=== PATIENT | female | born 1965 | race Caucasian/White ===

== ENCOUNTER 2016-10-07 18:19 | Observation (INO) ==
[2016-10-07] MEDS ORDERED: Ondansetron 4 MG/2 ML VIAL IV ONE (19:20)
[2016-10-07] MEDS ORDERED: *HR* HYDROmorphone (PF) 1 MG/ML SYRINGE IV ONE ×2 (19:20→21:56)
[2016-10-07] MEDS ORDERED: 0.9 % Sodium Chloride 1,000 ML IV ONE ×2 (19:20→21:56)
--- NOTE | 2016-10-07 19:24 | Emergency Department Note ---
Disposition Clinical Impression: Transaminitis, Hyperbilirubinemia, Epigastric abdominal pain, Intractable abdominal pain Disposition: Admitted As Inpatient Condition: Fair Time of Disposition: 22:35 Abdominal Pain HPI - General Chief Complaint: ED Abdominal Pain Stated Complaint: upper abd pain into back// vomiting Time Seen by Provider: 10/07/16 19:11 Source: patient Mode of arrival: ambulatory Limitations: no limitations Nursing Notes Reviewed: Yes Vital Signs Reviewed: Yes - History of Present Illness HPI Narrative: 42-year-old female with history of cholecystectomy, presents with acute onset epigastric pain, patient also has a history of pancreatitis. No history of drinking, morbid obesity, hypertension, never had upper endoscopy. Patient states that she has been having gas and bloating, took a Gas-X today but did not relieve her symptoms. Currently has 8 out of 10 epigastric pain radiating to her back. Apparently family history her father had an aortic aneurysm, mother with history of CABG, patient with no history of CAD, she denies chest pain, but does have discomfort with deep breaths. Vomiting 6 Pain is crampy and colicky in nature. Worse after eating. Patient has had normal stools and she denies hematuria emesis, hematochezia dysuria hematuria, Pt Subjective Complaint: abdominal pain Onset (ago): hour(s) (12) Consistency: constant Location: epigastric Pain Severity: moderate Pain Scale: 8 Quality: cramping, stabbing, aching Radiation: back Improves with: nothing Worsens with: eating Associated symptoms: Reports: nausea, vomiting. Denies: diarrhea, hematemesis, hematochezia - Related Data Allergies Allergy/AdvReac Type Severity Reaction Status Date / Time codeine Allergy See Verified 10/07/16 19:37 Comments Review of Systems: All systems were reviewed with historian and negative except as per below, or as documented in the HPI. Constitutional: Denies: fever, chills, weight changes CV: Denies: chest pain, palpitations Resp: Denies: cough, dyspnea, wheezes, hemoptysis GI: See history of present illness, positive for abdominal pain, nausea, vomiting denies hematochezia or melena Neuro: Denies: MARKS, weakness, sensory changes, gait difficulty Psych: Denies: anxiety, depression All systems ED: reviewed and negative except as stated. Abdominal Pain PMH - Past Medical History Medical history: Reports: hypertension Female Surgical History: Reports: , cholecystectomy Psychiatric history: Reports: depression - Social History Smoking status: Never smoker Alcohol use: Reports: rarely Drug use: Reports: none Physical Exam Constitutional: Morbidly obese female appears in mild discomfort, vital signs reviewed and wnl Neck: normal inspection, neck is supple, trachea midline Resp: normal chest inspection, CTA bilaterally, no resp distress CV: RRR, no m/g/r GI: Moderate to severe epigastric discomfort on palpation. Abdomen is soft and morbidly obese bowel sounds present 4 Back: normal inspection, no tenderness to palpation Neuro: A&O3, no gross motor or sensory deficits bilaterally MSK: normal inspection, bilateral UE and LE with normal ROM Skin: No rashes, skin warm, dry, intact - General Limitations: no limitations General appearance: alert Course Course Narrative: 51-year-old female with abdominal pain and epigastric moderate to severe, appears very uncomfortable get IV fluids and analgesics antiemetics and by mouth his lab work with lipase, hepatic panel, troponin EKG chest x-ray will get CT scan of the belly with contrast - Reevaluation(s) Reevaluation #1: Intractable abdominal pain, transaminitis and hyperbilirubinemia will admit patient to medicine service with GI evaluation. Ernesto accepting, Dr. Jimenez consulted - Consultations Consultation #1: I did speak with Dr. Jimenez he will evaluate patient to morning, and put orders and he states possible ERCP Time: 22:32 Vital Signs Temperature 98.5 F 10/07/16 18:22 Pulse Rate 66 10/07/16 18:22 Respiratory Rate 18 10/07/16 18:22 Blood Pressure 179/126 10/07/16 18:22 O2 Sat by Pulse Oximetry 96 10/07/16 18:22 Temperature 98.5 F 10/07/16 18:22 Pulse Rate 69 10/07/16 21:34 Respiratory Rate 20 10/07/16 21:34 Blood Pressure 177/110 10/07/16 21:34 O2 Sat by Pulse Oximetry 97 10/07/16 21:34 Oxygen Delivery Oxygen Delivery Room Air Abdominal Pain - Differential Diagnosis Differential Diagnosis: Likely: abdominal pain non-specific, acute appendicitis , diverticulitis, diverticulosis - Medical Records Medical records reviewed: Yes I reviewed the patient's medical records. - Lab Data Lab results reviewed: Yes I reviewed the patient's lab results. Result diagrams: 10/07/16 19:40 10/07/16 19:40 Lab Results 10/07/16 10/07/16 10/07/16 Range/Units 19:40 19:40 19:40 WBC 7.3 (4.3-11.1) K/mcL RBC 5.01 H (3.82-4.97) M/mcL Hgb 13.3 (11.5-15.4) g/dL Hct 41.4 (35.3-44.9) % MCV 82.6 L (83.0-100.0) fL MCH 26.5 L (28.0-33.3) pg MCHC 32.1 (31.6-35.5) g/dL RDW 13.5 (11.5-14.5) % Plt Count 235 (140-400) K/mcL MPV 9.9 (9.4-12.4) fL Immature Gran % 0.4 (0-4) % Seg Neutrophils % 81.9 % Lymphocytes % 12.1 % Monocytes % 5.2 % Eosinophils % 0.1 % Basophils % 0.3 % Neutrophils # 6.0 (1.6-8.9) K/mcL Lymphocytes # 0.9 (0.6-4.6) K/mcL Monocytes # 0.4 (0.0-1.3) K/mcL Eosinophils # 0.0 (0.0-0.6) K/mcL Basophils # 0.0 (0.0-0.2) K/mcL Immature Plt Fraction 3.3 (1.1-6.1) % Sodium 139 (136-145) mEq/L Potassium 3.8 (3.5-4.5) mEq/L Chloride 102 (98-109) mEq/L Carbon Dioxide 27 (19-29) mEq/L BUN 13 (7-20) mg/dL Creatinine 0.87 (0.57-1.11) mg/dL Est GFR ( Amer) > 60 (> 60) Est GFR (Non-Af Amer) > 60 (> 60) BUN/Creatinine Ratio 15 (6-26) Glucose 143 H (70-99) mg/dL Calculated Osmolality 291 (280-300) Calcium 9.1 (8.6-10.8) mg/dL Total Bilirubin 1.8 H (0.2-1.2) mg/dL Direct Bilirubin 1.2 H (0.0-0.5) mg/dL Indirect Bilirubin 0.6 (0.0-1.2) mg/dL AST 489 H (5-34) Units/L ALT 417 H (0-55) Units/L Alkaline Phosphatase 106 (38-126) Units/L Troponin I 0.00 (0-0.03) ng/mL Serum Total Protein 7.2 (6.0-8.3) g/dL Albumin 3.5 (3.5-5.0) g/dL Globulin 3.7 H (2.4-3.5) g/dL Albumin/Globulin Ratio 0.9 L (1.1-2.2) Lipase 19 (8-78) Units/L Urine Color (Yellow) Urine Clarity (Clear) Urine pH (5.0-8.0) pH Units Ur Specific [place] (1.010-1.025) Urine Protein (Neg-Trace) mg/dL Urine Glucose (UA) (Normal) mg/dL Urine Ketones (Negative) mg/dL Urine Blood (Negative) Urine Nitrite (Negative) Urine Bilirubin (Negative) Urine Urobilinogen (Normal) mg/dL Ur Leukocyte Esterase (Negative) Urine Microscopic RBC (0-3) per hpf Ur Squamous Epith Cells (None-Few) per lpf Amorphous Sediment (Few) Urine Bacteria (None-Few) per hpf Hyaline Casts (None-Few) per lpf Ur Culture Indicated? (NO) 10/07/16 Range/Units 21:35 WBC (4.3-11.1) K/mcL RBC (3.82-4.97) M/mcL Hgb (11.5-15.4) g/dL Hct (35.3-44.9) % MCV (83.0-100.0) fL MCH (28.0-33.3) pg MCHC (31.6-35.5) g/dL RDW (11.5-14.5) % Plt Count (140-400) K/mcL MPV (9.4-12.4) fL Immature Gran % (0-4) % Seg Neutrophils % % Lymphocytes % % Monocytes % % Eosinophils % % Basophils % % Neutrophils # (1.6-8.9) K/mcL Lymphocytes # (0.6-4.6) K/mcL Monocytes # (0.0-1.3) K/mcL Eosinophils # (0.0-0.6) K/mcL Basophils # (0.0-0.2) K/mcL Immature Plt Fraction (1.1-6.1) % Sodium (136-145) mEq/L Potassium (3.5-4.5) mEq/L Chloride (98-109) mEq/L Carbon Dioxide (19-29) mEq/L BUN (7-20) mg/dL Creatinine (0.57-1.11) mg/dL Est GFR ( Amer) (> 60) Est GFR (Non-Af Amer) (> 60) BUN/Creatinine Ratio (6-26) Glucose (70-99) mg/dL Calculated Osmolality (280-300) Calcium (8.6-10.8) mg/dL Total Bilirubin (0.2-1.2) mg/dL Direct Bilirubin (0.0-0.5) mg/dL Indirect Bilirubin (0.0-1.2) mg/dL AST (5-34) Units/L ALT (0-55) Units/L Alkaline Phosphatase (38-126) Units/L Troponin I (0-0.03) ng/mL Serum Total Protein (6.0-8.3) g/dL Albumin (3.5-5.0) g/dL Globulin (2.4-3.5) g/dL Albumin/Globulin Ratio (1.1-2.2) Lipase (8-78) Units/L Urine Color Yellow (Yellow) Urine Clarity Slightly Hazy (Clear) Urine pH 7.5 (5.0-8.0) pH Units Ur Specific [place] > 1.030 H (1.010-1.025) Urine Protein Negative (Neg-Trace) mg/dL Urine Glucose (UA) Normal (Normal) mg/dL Urine Ketones Negative (Negative) mg/dL Urine Blood Negative (Negative) Urine Nitrite Negative (Negative) Urine Bilirubin Negative (Negative) Urine Urobilinogen Normal (Normal) mg/dL Ur Leukocyte Esterase Negative (Negative) Urine Microscopic RBC 0-3 (0-3) per hpf Ur Squamous Epith Cells Many H (None-Few) per lpf Amorphous Sediment Moderate H (Few) Urine Bacteria Moderate H (None-Few) per hpf Hyaline Casts None Seen (None-Few) per lpf Ur Culture Indicated? NO (NO) - Radiology Data Radiology results reviewed: Yes I reviewed the patient's radiology results. Abdomen/Pelvis CTA 10/07/16 19:21 IMPRESSION: 1. No acute intra-abdominal findings identified. 2. Unremarkable appearance of the aorta. No evidence for dissection or aneurysm. 3. Diverticulosis without evidence for diverticulitis. D/ / Chas Trujillo MD / Chas Trujillo MD Interpreting Provider: Chas Trujillo MD Chest X-Ray 10/07/16 19:21 IMPRESSION: Normal chest. D/ / 10/07/2016 19:44:53 Chalry Granados MD / joe Interpreting Provider: Charly Granados MD - EKG Data EKG attestation: Yes I reviewed and interpreted this EKG. EKG shows normal: sinus rhythm (63 bpm WV 196 QRS 96 QTc 407 Q wave) Rate: normal Rhythm: NSR Interpretation: no acute changes, unchanged when compared to prior tracing (date ) - Core Measures AMI Core Measures Followed: No Measure Exclusions: not indicated Attestation Statement - Attestation Attestation: I, Sebastián Castillo MD, personally performed a history and physical exam of the patient and discussed their management with the resident. I reviewed the resident's note and agree with the documented findings, medical decision making , and plan of care. 51-year-old female presents to the emergency department with a complaint of epigastric abdominal pain which started this morning. It was rapid onset and is fairly severe in intensity. Patient has had her gallbladder out about 20 years ago. On examination patient is a well-developed obese female in no acute distress but does appear to be in moderate discomfort. She is alert and oriented 3. There is no cyanosis or diaphoresis. Sounds are clear and equal bilaterally. Heart regular rate and rhythm. Abdomen is soft with normal bowel sounds. It is moderate midepigastric tenderness with no guarding or rebound tenderness. No CVA tenderness. Labs reviewed. Elevated total bilirubin and hepatic enzymes noted. Dr. Wright discussed with the chemical dependency counselor, Dr. Jimenez, and he will follow-up with the patient in the morning in the hospital. The hospitalist, Dr. Orozco, was consulted and accepted admission of the patient.
[2016-10-07 19:56] LABS: Basophils % 0.3 %; Eosinophils % 0.1 %; Hematocrit 41.4 % (35.3-44.9); Hemoglobin 13.3 g/dL (11.5-15.4); Immature Granulocytes % 0.4 % (0-4); Immature Platelets 3.3 % (1.1-6.1); Lymphocytes # 0.9 K/mcL (0.6-4.6); Lymphocytes % 12.1 %; Mean Corpuscular HGB Conc 32.1 g/dL (31.6-35.5); Mean Corpuscular Hemoglobin 26.5 pg (28.0-33.3); Mean Corpuscular Volume 82.6 fL (83.0-100.0); Mean Platelet Volume 9.9 fL (9.4-12.4); Monocytes # 0.4 K/mcL (0.0-1.3); Monocytes % 5.2 %; Platelet Count 235 K/mcL (140-400); Red Blood Count 5.01 M/mcL (3.82-4.97); Red Cell Distribution Width 13.5 % (11.5-14.5); Segmented Neutrophils % 81.9 %
[2016-10-07 20:13] LABS: Alanine Aminotransferase 417 Units/L (0-55); Albumin 3.5 g/dL (3.5-5.0); Albumin/Globulin Ratio 0.9 (1.1-2.2); Alkaline Phosphatase 106 Units/L (38-126); Aspartate Amino Transferase 489 Units/L (5-34); BUN/Creatinine Ratio 15 (6-26); Bilirubin,Direct 1.2 mg/dL (0.0-0.5); Bilirubin,Indirect 0.6 mg/dL (0.0-1.2); Bilirubin,Total 1.8 mg/dL (0.2-1.2); Blood Urea Nitrogen 13 mg/dL (7-20); Calcium 9.1 mg/dL (8.6-10.8); Carbon Dioxide 27 mEq/L (19-29); Chloride 102 mEq/L (98-109); Globulin 3.7 g/dL (2.4-3.5); Glucose 143 mg/dL (70-99); Lipase 19 Units/L (8-78); Osmolality,Calculated 291 (280-300); Potassium 3.8 mEq/L (3.5-4.5); Sodium 139 mEq/L (136-145); Total Protein 7.2 g/dL (6.0-8.3); eGFR For African Americans > 60 (> 60); eGFR For Non-African Americans > 60 (> 60)
[2016-10-07] MEDS ORDERED: GI Cocktail 40 ML EACH PO ONE (21:32)
[2016-10-07] MEDS ORDERED: Dicyclomine 20 MG/2 ML AMPUL IM ONE (21:32)
[2016-10-07] MEDS ORDERED: Metoclopramide 10 MG/2 ML VIAL IVP ONE (21:39)
[2016-10-07 21:46] LABS: Bilirubin,Urine Negative (Negative); Blood,Urine Negative (Negative); Color,Urine Yellow (Yellow); Glucose,Urine (UA) Normal (Normal); Ketones,Urine Negative (Negative); Leukocyte Esterase,Urine Negative (Negative); Nitrite,Urine Negative (Negative); PH,Urine 7.5 pH Units (5.0-8.0); Protein,Urine Negative (Neg-Trace); Specific Gravity,Urine > 1.030 (1.010-1.025); Urobilinogen,Urine Normal (Normal)
[2016-10-07 21:48] LABS: Bacteria,Urine Moderate per hpf (None-Few); Hyaline Casts,Urine None Seen per lpf (None-Few); RBC,Urine 0-3 per hpf (0-3); Squamous Epithelial Cell,Urine Many per lpf (None-Few)
[2016-10-07 21:53] LABS: Clarity,Urine Slightly Hazy (Clear)
[2016-10-07 22:09] LABS: Amorphous Sediment,Urine Moderate (Few)
[2016-10-07] MEDS ORDERED: Pantoprazole 40 MG VIAL IVP ONE (22:45)
[2016-10-07] MEDS ORDERED: *HR* HYDROmorphone (PF) 1 MG/ML SYRINGE IVP PRN (22:45)
[2016-10-07] MEDS ORDERED: Naloxone 0.4 MG/ML INJ IVP PRN (22:45)
[2016-10-07] MEDS ORDERED: Ondansetron 4 MG/2 ML VIAL IVP ONE (22:45)
[2016-10-07] MEDS ORDERED: Ketorolac 30 MG/ML VIAL IVP ONE (22:45)
[2016-10-07] MEDS ORDERED: *HR* OxyCODONE Immed Rel 5 MG TABLET PO PRN (22:45)
[2016-10-07] MEDS ORDERED: *HR* Promethazine 25 MG/ML VIAL IVP PRN (22:45)
[2016-10-07] MEDS ORDERED: Ketorolac 30 MG/ML VIAL IVP PRN (22:45)
--- NOTE | 2016-10-07 23:04 | Internal Med History&Physical ---
Date of Encounter: 10/07/16 Time of Encounter: 22:00 Assessment and Plan (1) Nausea & vomiting Current visit: Yes Status: Acute . Qualifiers: Vomiting type: cyclical vomiting Vomiting Intractability: intractable Qualified Code(s): G43.A1 - Cyclical vomiting, intractable (2) Cholestasis, intrahepatic Current visit: Yes Status: Acute . (3) Morbid obesity with BMI of 40.0-44.9, adult Current visit: Yes Status: Chronic . (4) Accelerated essential hypertension Current visit: Yes Status: Acute . (5) Hyperglycemia, unspecified Current visit: Yes Status: Acute . (6) Anemia Current visit: Yes Status: Acute . Qualifiers: Anemia type: unspecified type Qualified Code(s): D64.9 - Anemia, unspecified (7) YANET (obstructive sleep apnea) Current visit: Yes Status: Chronic . (8) Epigastric abdominal pain Current visit: Yes Status: Acute . (9) Intractable abdominal pain Current visit: Yes Status: Acute . (10) Transaminitis Current visit: Yes Status: Acute . (11) Diverticulosis of colon Current visit: Yes Status: Chronic . Qualifiers: Diverticulosis bleeding: diverticulosis without bleeding Qualified Code(s) : K57.30 - Diverticulosis of large intestine without perforation or abscess without bleeding (12) Umbilical hernia Current visit: Yes Status: Chronic . Qualifiers: Obstruction and gangrene presence: without obstruction or gangrene Qualified Code(s): K42.9 - Umbilical hernia without obstruction or gangrene (13) Supraumbilical hernia Current visit: Yes Status: Acute . 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 Internal Medicine - H&P: HPI Chief complaint: Abdominal pain Admitted From: Emergency Dept Plans for Post Hospital Care: Home History of present illness: Ms. Collado is a 51 year old female history significant for hypertension, obstructive of sleep apnea (not currently on CPAP), diverticulosis coli, morbid obesity, nonsmoker. The patient was visited and interviewed and examined. The patient was admitted to [facility] via the emergency department which she presented with report of intractable abdominal pain nausea and vomiting. Patient reported the acute onset of primarily mid to epigastric pain with radiation through to the back on the day of ED presentation. He had a sensation of increasing gaseousness and bloating earlier in the day and took Gas -X and attempt to relieve her discomfort. This was unsuccessful. Her pain was rated at 8-10/10 severity. This was not associated by any symptoms of diarrhea or constipation. There was no report upper or lower gastrointestinal bleeding, although nausea and vomiting was prominent and the patient vomited at least 6 times prior to her ER presentation. When present nothing seems to improve symptoms. The symptoms seemed better less severe with an empty stomach. Denied hematemesis hemoptysis epistaxis.. Denied melena hematochezia. Abdominal pain has at times felt crampy and colicky. Although specific food triggers have not been identified, eating anything solid aggravates symptoms. She reported a normal bowel movement the day of presentation. Denied any evidence for hematuria dysuria or flank pain. Her pain she acknowledges this as be mostly radiating up from the epigastrium, with a sense of bloating and accompanied by some discomfort at deep inspirations. Although she has had some mild lower chest discomfort she relates this primarily as being a part of her epigastric complaint denies any prior history of known or diagnosed heart disease. Family history however is significant with father treated for an aortic aneurysm and her mother having received a coronary artery bypass grafting. Again she denied any personal history for coronary artery disease although heart disease is prominent in her family and she denies current symptoms. She denies any specific food triggers. She reports that her prior history of pancreatitis was believed to have been self-limited with no sequela. Her current symptoms of pain in the epigastrium radiating through to her back with some association with oral intake is reminiscent of her previous diagnosis of pancreatitis. Findings in the ED: Temperature 98.5 pulse 66-69 respiration 16-18 BP 176-179/ 107-126. O2 saturation 96-98% room air. WBC 7.3 hemoglobin 15.3 platelets 235, 000. MCV 82.6 MCH 26.5. RBC 5.01. Differential normal. Metabolic panel normal. BUN 13 creatinine 0.87. Glucose 143 osmolality 291. Hepatic function bilirubin total 1.8 direct 1.2. AST 489 ALT 417. Albumin 2.5 total 7.2. Lipase 19. Troponin 0.00. CT angiogram abdomen and pelvis demonstrated no acute intra-abdominal findings. Unremarkable appearance of the aorta. No evidence for dissection or aneurysm. Diverticulosis without evidence of diverticulitis. Lung bases demonstrated mild bibasilar atelectasis. Partially calcified nodule left lung base. Several calcified nodules left hilum. Incidental notation of a sensory right renal artery. Liver spleen pancreas kidneys adrenals appeared intact. Gallbladder surgically absent. Mild intrahepatic and extrahepatic biliary dilatation. No free fluid or free air in the identified area. Bowel grossly unremarkable. Nose showed no acute abnormalities. Soft tissues demonstrated small fat filled umbilical hernia small supraumbilical fat filled ventral hernia. Portable chest x-ray demonstrated no acute or active cardiopulmonary process. EKG normal sinus rhythm. Rate 63. No acute ischemic changes. Preliminary impression suggests acute abdominal pain associated nausea and vomiting really of epigastric mid epigastric area. Rule out gastritis/ duodenitis/PUD. Rule out recurrent pancreatitis. No evidence for SMA syndrome versus celiac artery obstruction or vascular lesion. Findings are complicated by apparent cholestasis the patient status post prior cholecystectomy. Transaminitis + direct hyperbilirubinemia noted. Rule out intrahepatic process with obstruction. Rule out extrahepatic process or obstructing lesion/mass. Mild erythrocytosis with micro-acidic hypochromic red blood cell indices may suggest the presence of a hemoglobinopathy. This will need to be further assessed. She has Not Undergone Any Upper or Lower Endoscopy Interventions. He Is Not Currently on Any Long-Standing Hormone Replacement/OCP Therapy. Clinical examination is also significant for accelerated hypertension due to severe. This may be prone toward the inducing her somatic complaints of chronic recurring headaches and migraine headaches. This has not however been clearly defined as a relationship. Investigation is warranted. Patient's presenting concerns, clinical findings and history she is at low risk for further acute clinical decline and morbidity. Workup and treatment will proceed comprehensively. Cumulative laboratory and radiographic data base was reviewed, considered and discussed. Pertinent ancillary medical records including ECW and PCI documentation was reviewed and considered. Given the patient's presenting concerns, past medical history, clinical findings and symptoms, she is admitted at this time will undergo further evaluation and disposition. Orders were written as per the computerized physician linseed oil order filler system.......................................................................... .................... Consultative opinions will be sought as clinical circumstances justify. Consultative opinion has been requested of gastroenterology. Pain management needs will be addressed. Laboratory and radiographic data base will be updated as appropriate. Studies include: PT,INR,APTT,Ddimer,LDH, reticulocyte count, VBG, UA, HCG preg test, cardiac injury panel, BNP, metabolic and hematologic panel, magnesium. phosphorus, ionized calcium, thyroid panel, lipid profile, A1c, C-peptide, CRP, sed rate, amylase, lipase, lactic acid, Hgb electrophoresis, serologies, etc. Precautions: Aspiration, fall, delirium protocol/surveillance initiated. Telemetry with continuous hemodynamic monitoring and pulse oximetry initiated. Orthostatic vital signs. Empiric antibiotic coverage: pending diagnostics/culture data. Special studies: CT/CTA abd-pelvis, chest x-ray, telemetry, EKG, MRCP. Pulmonary toilet: Incentive spirometry. Aerosol bronchodilator, mucolytic, antitussive. Supplemental oxygen. Corticosteroid therapyPRN. CPAP/BiPAP supplemental oxygen delivery. Aerosol Mucomyst therapyPRN. Fluid and electrolyte repletion efforts will proceed. Careful attention to fluid balance and renal recovery will be emphasized. Avoidance of nephrotoxic exposure and adverse drug drug interaction in the setting of impaired renal function will be monitored closely. Acute coronary syndrome protocol/surveillance initiated. Bowel rest. Ice chips/water with oral medications. Nothing By mouth advanced to clear liquids to advance as tolerated at the discretion of consulting staff. Antiemetic, prokinetic, probiotic therapy initiated. Intravenous PPI and PO sucralfate. Fluid rehydration therapy. DVT and PUD prophylaxis initiated: PPI therapy, intermittent pneumatic cuffs/ TEDs. Subcutaneous heparin/Lovenox. Early ambulation will be encouraged. Immunization updates recommended. Influenza and pneumococcal vaccinations as part of ongoing preventative healthcare recommendations strongly recommended. Smoking cessation counseling briefly addressed. Patient is a nonsmoker. Advanced care directive discussion briefly addressed. Patient does not declare any healthcare restrictions at this time. Cardiovascular risk appraisal and cardiovascular risk reduction efforts will be emphasized. Physical and occupational therapy may be consulted to evaluate patient's functional capacity and progress mobility as circumstances justify. Nutrition/dietary education counseling may be considered as circumstances justify. Outpatient medication schedules will be reviewed, confirmed and facilitated as appropriate. Reconciliation of home treatments including adjustments, substitutions and reintroduction into the treatment regimen will address necessary maintenance therapies for chronic pre-existing medical conditions. Plan of care has been reviewed and discussed in detail with the patient. Questions addressed. Hospital course anddicyated by clinical findings, treatment response and potential consultative interventions. Patient is at risk for further acute clinical declinea and morbidity due to her present chief complaints, findings and comorbid conditions. Condition is serious. Prognosis is guarded. CODE STATUS is full. Past Med Surg Social Fam HX - Past Medical History Source: old records reviewed Medical history: arthritis, hypertension, other (Diverticulosis of the colon. Obstructive sleep apnea, nocturnal CPAP dependent.) Psychiatric history: anxiety, depression, other - Past Surgical History Surgical History: , cholecystectomy, other - Social History Smoking Status: Never smoker Smokeless Tobacco Status: No Alcohol use: rarely Drug use: none Occupational status: unemployed Current living situation: With Family Activity Level: Independent ambulation, Mostly sedentary Recent Out of Country Travel Within the Last 8 Weeks: No Exposure or Possible Exposure to Illness During Travel: No - Family History Mother Living Status: Still Living Hx Family Cardiac Disorders: Yes Father Living Status: Cause of : Aortic aneurysm Hx Family Cardiac Disorders: Yes Internal Medicine - H&P: Meds Escitalopram [Lexapro] 20 mg PO DAILY 10/07/16 [History] Furosemide [Lasix] 20 mg PO DAILY 10/07/16 [History] Lisinopril [Zestril] 5 mg PO BID 10/07/16 [History] Allergies codeine Allergy (Verified 10/07/16 19:37) See Comments Pt states throat swells (moderately) and that hives and itching are severe. All Systems PM: A 10-system review of systems was performed and is negative for pertinent findings except as documented above in the HPI. - Constitutional Constitutional: as per HPI, malaise, no chills, no fever(s), no night sweats - EENT Eyes: as per HPI, no change in vision, no discharge, no pain, no photophobia Ears: as per HPI, no ear discharge, no ear pain, no tinnitus Nose, mouth and throat: as per HPI, no dysphagia, no nasal discharge, no neck pain, no sore throat - Cardiovascular Cardiovascular ROS IM: as per HPI, no chest pain, no diaphoresis, no dyspnea, no lightheadedness, no palpitations, no syncope - Respiratory Respiratory: as per HPI, no cough, no dyspnea, no wheezing, no excessive phlegm production - Gastrointestinal Gastrointestinal: as per HPI, abdominal pain, bloating, cramping, other, no change in bowel habits, no change in stool character, no coffee ground emesis, no constipation, no diarrhea, no hematemesis, no hematochezia, no melena, no nausea, no vomiting - Genitourinary Genitourinary: as per HPI, no change in urinary stream, no dysuria, no flank pain, no hematuria - Musculoskeletal Musculoskeletal ROS IM: as per HPI, no numbness, no tingling - Integumentary Integumentary IM: as per HPI, no rash, no unusual bruising - Neurological Neurological ROS: as per HPI, no confusion, no convulsions, no focal weakness, no numbness, no tingling, no tremor(s) - Psychiatric Psychiatric: as per HPI - Endocrine Endocrine IM: as per HPI - Hematologic/Lymphatic Hematologic/Lymphatic: as per HPI, no easy bruising - Allergic/Immunologic Allergic/Immunologic: as per HPI - Constitutional Vitals: Temp Pulse Resp BP Pulse Ox 98.2 F 83 16 197/106 96 10/07/16 22:55 10/07/16 22:55 10/07/16 22:55 10/07/16 22:55 10/07/16 22:55 General appearance: Present: cooperative, mild distress, A&O X 3, morbidly obese , pleasant, answers questions appropriately - Head Head exam: Present: atraumatic, normal inspection, normocephalic - Eye Eye exam: Present: EOMI, PERRL, conjuntiva pink, sclera anicteric Pupils: Present: normal accommodation, PERRL - ENT ENT exam: Present: mucous membranes moist, normal external ear exam, normal oropharynx - Neck Neck exam general surgery: Present: full ROM, supple, trachea midline. Absent: lymphadenopathy, tenderness, nuchal rigidity - Respiratory Respiratory exam: Present: decreased breath sounds, CTAB. Absent: accessory muscle use, rales, rhonchi, wheezes - Cardiovascular Cardiovascular exam: Present: distant heart sounds, RRR, +S1, +S2. Absent: diastolic murmur, gallop, rubs, systolic murmur - GI/Abdominal GI/Abdominal exam: Present: diminished bowel sounds, distended, guarding, hypoactive bowel sounds, soft, tenderness, no peritoneal signs. Absent: mass, rebound - Extremities Exam Extremities exam: Present: full ROM, warm, radial pulses palpable and symetrical. Absent: calf tenderness, cyanotic, pedal edema - Neurological Exam Neurological exam: Present: alert, CN II-XII intact, oriented X3, no focal deficits. Absent: pronater drift, facial droop, speech deficit - Psychiatric Psychiatric exam: Present: normal affect, normal mood - Skin Skin exam: Present: dry, intact, warm. Absent: petechiae, rash, urticaria, vesicles Internal Med - H&P Results - Labs CBC & Chem 7: 10/07/16 19:40 10/07/16 19:40 Labs: Vital Signs Temp Pulse Resp BP Pulse Ox 10/07/16 22:55 98.2 F 83 16 197/106 96 10/07/16 22:41 18 167/89 10/07/16 21:34 69 20 177/110 97 10/07/16 20:54 69 16 176/107 98 10/07/16 20:15 63 14 185/115 10/07/16 18:22 98.5 F 66 18 179/126 96 Intake and Output 10/07/16 10/07/16 10/07/16 07:59 15:59 23:59 Intake Total 1999 Output Total 0 / 0 Balance 1999 Intake: IV Fluids 1999 0.9 % Sodium Chloride , 1999 000 ML @ 3750 mls/hr IV BOLUS ONE Rx#:[id number] Oral 0 / 0 Output: Urine 0 / 0 Other: Stool Characteristics Normal for Patient Weight 127.091 kg Patient Weight 10/07/16 23:59 Weight 127.091 kg Short CBC 10/07/16 Range/Units 19:40 WBC 7.3 (4.3-11.1) K/mcL Hgb 13.3 (11.5-15.4) g/dL Hct 41.4 (35.3-44.9) % Plt Count 235 (140-400) K/mcL Neutrophils # 6.0 (1.6-8.9) K/mcL BMP 10/07/16 Range/Units 19:40 Sodium 139 (136-145) mEq/L Potassium 3.8 (3.5-4.5) mEq/L Chloride 102 (98-109) mEq/L Carbon Dioxide 27 (19-29) mEq/L BUN 13 (7-20) mg/dL Creatinine 0.87 (0.57-1.11) mg/dL Glucose 143 H (70-99) mg/dL Calcium 9.1 (8.6-10.8) mg/dL Cardiac Enzymes 10/07/16 Range/Units 19:40 Troponin I 0.00 (0-0.03) ng/mL Liver Function 10/07/16 Range/Units 19:40 Total Bilirubin 1.8 H (0.2-1.2) mg/dL Direct Bilirubin 1.2 H (0.0-0.5) mg/dL AST 489 H (5-34) Units/L ALT 417 H (0-55) Units/L Alkaline Phosphatase 106 (38-126) Units/L Albumin 3.5 (3.5-5.0) g/dL Urine 10/07/16 Range/Units 21:35 Urine Color Yellow (Yellow) Urine Clarity Slightly Hazy (Clear) Urine pH 7.5 (5.0-8.0) pH Units Ur Specific [place] > 1.030 H (1.010-1.025) Urine Protein Negative (Neg-Trace) mg/dL Urine Glucose (UA) Normal (Normal) mg/dL Allergies Allergy/AdvReac Type Severity Reaction Status Date / Time codeine Allergy See Verified 10/07/16 19:37 Comments - Impressions Abnormal lab results RBC 5.01 M/mcL (3.82-4.97) H 10/07/16 19:40 MCV 82.6 fL (83.0-100.0) L 10/07/16 19:40 MCH 26.5 pg (28.0-33.3) L 10/07/16 19:40 Glucose 143 mg/dL (70-99) H 10/07/16 19:40 Total Bilirubin 1.8 mg/dL (0.2-1.2) H 10/07/16 19:40 Direct Bilirubin 1.2 mg/dL (0.0-0.5) H 10/07/16 19:40 AST 489 Units/L (5-34) H 10/07/16 19:40 ALT 417 Units/L (0-55) H 10/07/16 19:40 Globulin 3.7 g/dL (2.4-3.5) H 10/07/16 19:40 Albumin/Globulin Ratio 0.9 (1.1-2.2) L 10/07/16 19:40 Ur Specific [place] > 1.030 (1.010-1.025) H 10/07/16 21:35 Ur Squamous Epith Cells Many per lpf (None-Few) H 10/07/16 21:35 Amorphous Sediment Moderate (Few) H 10/07/16 21:35 Urine Bacteria Moderate per hpf (None-Few) H 10/07/16 21:35 Laboratory Results WBC 7.3 K/mcL (4.3-11.1) 10/07/16 19:40 RBC 5.01 M/mcL (3.82-4.97) H 10/07/16 19:40 Hgb 13.3 g/dL (11.5-15.4) 10/07/16 19:40 Hct 41.4 % (35.3-44.9) 10/07/16 19:40 MCV 82.6 fL (83.0-100.0) L 10/07/16 19:40 MCH 26.5 pg (28.0-33.3) L 10/07/16 19:40 MCHC 32.1 g/dL (31.6-35.5) 10/07/16 19:40 RDW 13.5 % (11.5-14.5) 10/07/16 19:40 Plt Count 235 K/mcL (140-400) 10/07/16 19:40 MPV 9.9 fL (9.4-12.4) 10/07/16 19:40 Immature Gran % 0.4 % (0-4) 10/07/16 19:40 Seg Neutrophils % 81.9 % 10/07/16 19:40 Lymphocytes % 12.1 % 10/07/16 19:40 Monocytes % 5.2 % 10/07/16 19:40 Eosinophils % 0.1 % 10/07/16 19:40 Basophils % 0.3 % 10/07/16 19:40 Neutrophils # 6.0 K/mcL (1.6-8.9) 10/07/16 19:40 Lymphocytes # 0.9 K/mcL (0.6-4.6) 10/07/16 19:40 Monocytes # 0.4 K/mcL (0.0-1.3) 10/07/16 19:40 Eosinophils # 0.0 K/mcL (0.0-0.6) 10/07/16 19:40 Basophils # 0.0 K/mcL (0.0-0.2) 10/07/16 19:40 Immature Plt Fraction 3.3 % (1.1-6.1) 10/07/16 19:40 Sodium 139 mEq/L (136-145) 10/07/16 19:40 Potassium 3.8 mEq/L (3.5-4.5) 10/07/16 19:40 Chloride 102 mEq/L (98-109) 10/07/16 19:40 Carbon Dioxide 27 mEq/L (19-29) 10/07/16 19:40 BUN 13 mg/dL (7-20) 10/07/16 19:40 Creatinine 0.87 mg/dL (0.57-1.11) 10/07/16 19:40 Est GFR ( Amer) > 60 (> 60) 10/07/16 19:40 Est GFR (Non-Af Amer) > 60 (> 60) 10/07/16 19:40 BUN/Creatinine Ratio 15 (6-26) 10/07/16 19:40 Glucose 143 mg/dL (70-99) H 10/07/16 19:40 Calculated Osmolality 291 (280-300) 10/07/16 19:40 Calcium 9.1 mg/dL (8.6-10.8) 10/07/16 19:40 Total Bilirubin 1.8 mg/dL (0.2-1.2) H 10/07/16 19:40 Direct Bilirubin 1.2 mg/dL (0.0-0.5) H 10/07/16 19:40 Indirect Bilirubin 0.6 mg/dL (0.0-1.2) 10/07/16 19:40 AST 489 Units/L (5-34) H 10/07/16 19:40 ALT 417 Units/L (0-55) H 10/07/16 19:40 Alkaline Phosphatase 106 Units/L (38-126) 10/07/16 19:40 Troponin I 0.00 ng/mL (0-0.03) 10/07/16 19:40 Serum Total Protein 7.2 g/dL (6.0-8.3) 10/07/16 19:40 Albumin 3.5 g/dL (3.5-5.0) 10/07/16 19:40 Globulin 3.7 g/dL (2.4-3.5) H 10/07/16 19:40 Albumin/Globulin Ratio 0.9 (1.1-2.2) L 10/07/16 19:40 Lipase 19 Units/L (8-78) 10/07/16 19:40 Urine Color Yellow (Yellow) 10/07/16 21:35 Urine Clarity Slightly Hazy (Clear) 10/07/16 21:35 Urine pH 7.5 pH Units (5.0-8.0) 10/07/16 21:35 Ur Specific [place] > 1.030 (1.010-1.025) H 10/07/16 21:35 Urine Protein Negative mg/dL (Neg-Trace) 10/07/16 21:35 Urine Glucose (UA) Normal mg/dL (Normal) 10/07/16 21:35 Urine Ketones Negative mg/dL (Negative) 10/07/16 21:35 Urine Blood Negative (Negative) 10/07/16 21:35 Urine Nitrite Negative (Negative) 10/07/16 21:35 Urine Bilirubin Negative (Negative) 10/07/16 21:35 Urine Urobilinogen Normal mg/dL (Normal) 10/07/16 21:35 Ur Leukocyte Esterase Negative (Negative) 10/07/16 21:35 Urine Microscopic RBC 0-3 per hpf (0-3) 10/07/16 21:35 Ur Squamous Epith Cells Many per lpf (None-Few) H 10/07/16 21:35 Amorphous Sediment Moderate (Few) H 10/07/16 21:35 Urine Bacteria Moderate per hpf (None-Few) H 10/07/16 21:35 Hyaline Casts None Seen per lpf (None-Few) 10/07/16 21:35 Ur Culture Indicated? NO (NO) 10/07/16 21:35 Impressions Abdomen/Pelvis CTA 10/07/16 19:21 IMPRESSION: 1. No acute intra-abdominal findings identified. 2. Unremarkable appearance of the aorta. No evidence for dissection or aneurysm. 3. Diverticulosis without evidence for diverticulitis. D/ / Chas Trujillo MD / Chas Trujillo MD Interpreting Provider: Chas Trujillo MD Chest X-Ray 10/07/16 19:21 IMPRESSION: Normal chest. D/ / 10/07/2016 19:44:53 Charly Granados MD / [email or web address] Interpreting Provider: Charly Granados MD
[2016-10-07 23:23] LABS: INR 1.1
[2016-10-07 23:26] LABS: Activated Partial Thrombo Time 20.3 Seconds (26.0-36.0)
[2016-10-08] MEDS: Ringers Solution, Lactated 1,000 ML IVC SCH ×3 (00:27→18:02)
[2016-10-08 05:05] LABS: Bilirubin,Urine Small (Negative); Blood,Urine Negative (Negative); Clarity,Urine Cloudy (Clear); Color,Urine Dark Yellow (Yellow); Glucose,Urine (UA) Normal (Normal); Ketones,Urine Negative (Negative); Leukocyte Esterase,Urine Negative (Negative); Nitrite,Urine Negative (Negative); PH,Urine 6.5 pH Units (5.0-8.0); Protein,Urine Negative (Neg-Trace); Specific Gravity,Urine > 1.030 (1.010-1.025); Urobilinogen,Urine Normal (Normal)
[2016-10-08 05:07] LABS: Bacteria,Urine Few per hpf (None-Few); Hyaline Casts,Urine None Seen per lpf (None-Few); RBC,Urine 0-3 per hpf (0-3); WBC,Urine 0-3 per hpf (0-3)
[2016-10-08 05:14] LABS: Amphetamine Screen,Urine Negative ng/mL (Cutoff=1000); Benzodiazepines Screen,Urine Negative ng/mL (Cutoff=200); Cannabinoid Screen,Urine Negative ng/mL (Cutoff = 50); Cocaine Screen,Urine Negative ng/mL (Cutoff= 300); Opiate Screen,Urine Negative ng/mL (Cutoff=300); Phencyclidine Screen,Urine Negative ng/mL (Cutoff=25); Squamous Epithelial Cell,Urine Few per lpf (None-Few)
[2016-10-08 05:15] LABS: Barbiturate Screen,Urine Positive ng/mL (Cutoff=200)
[2016-10-08 05:48] LABS: VBG PH 7.41 pH Units (7.32-7.42)
[2016-10-08 05:50] LABS: Basophils % 0.3 %; Eosinophils % 0.2 %; Hematocrit 36.2 % (35.3-44.9); Hemoglobin 11.7 g/dL (11.5-15.4); Immature Granulocytes % 0.5 % (0-4); Lymphocytes # 1.9 K/mcL (0.6-4.6); Lymphocytes % 29.2 %; Mean Corpuscular HGB Conc 32.3 g/dL (31.6-35.5); Mean Corpuscular Hemoglobin 26.8 pg (28.0-33.3); Mean Platelet Volume 10.2 fL (9.4-12.4); Monocytes # 0.5 K/mcL (0.0-1.3); Monocytes % 7.2 %; Platelet Count 194 K/mcL (140-400); Red Blood Count 4.36 M/mcL (3.82-4.97); Red Cell Distribution Width 13.8 % (11.5-14.5); Segmented Neutrophils % 62.6 %
[2016-10-08 06:06] LABS: Ionized Calcium 1.12 mmol/L (1.15-1.35)
[2016-10-08 06:08] LABS: Alanine Aminotransferase 616 Units/L (0-55); Albumin 2.9 g/dL (3.5-5.0); Albumin/Globulin Ratio 0.9 (1.1-2.2); Alkaline Phosphatase 109 Units/L (38-126); Aspartate Amino Transferase 535 Units/L (5-34); BUN/Creatinine Ratio 15 (6-26); Blood Urea Nitrogen 11 mg/dL (7-20); Calcium 8.4 mg/dL (8.6-10.8); Carbon Dioxide 27 mEq/L (19-29); Chloride 106 mEq/L (98-109); Chol/HDL Ratio 3.1 (0-4.9); Cholesterol 170 mg/dL (< 200); Globulin 3.1 g/dL (2.4-3.5); Glucose 107 mg/dL (70-99); HDL Cholesterol 54 mg/dL (40-59); LDL Cholesterol,Calculated 106 mg/dL (0-99); Magnesium 1.8 mg/dL (1.6-2.6); Osmolality,Calculated 288 (280-300); Phosphorous 3.1 mg/dL (2.3-4.7); Potassium 4.1 mEq/L (3.5-4.5); Sodium 139 mEq/L (136-145); Triglycerides 50 mg/dL (< 150); eGFR For African Americans > 60 (> 60); eGFR For Non-African Americans > 60 (> 60)
[2016-10-08 06:19] LABS: Hemoglobin A1C 5.6 %
[2016-10-08 06:29] LABS: Thyroid Stimulating Hormone 0.898 mcIU/mL (0.350-4.840)
[2016-10-08 06:53] LABS: C-Reactive Protein 5 mg/L (Less than 5)
[2016-10-08 11:37] LABS: Hepatitis A Antibody IgM Nonreactive (Nonreactive); Hepatitis B Core IgM Nonreactive (Nonreactive); Hepatitis B Surface Antigen Nonreactive (Nonreactive); Hepatitis C Virus Antibody Nonreactive (Nonreactive)
[2016-10-08] MEDS ORDERED: *HR* HYDROmorphone (PF) 1 MG/ML SYRINGE IVP PRN (12:37)
[2016-10-08] MEDS ORDERED: *HR* OxyCODONE Immed Rel 5 MG TABLET PO PRN (12:38)
--- NOTE | 2016-10-08 14:52 | Gastroenterology Consult Note ---
<Santos Kiran - Last Filed: 10/08/16 16:36> Date of Encounter: 10/08/16 Time of Encounter: 14:30 - Assessment and plan (1) Transaminitis Current Visit: Yes Status: Acute Assessment and plan: On admission TB 1.8, DB 1.2, AST 489, and ALT 417. This AM TB 2, AST 535, and ALT 616. MRCP with no acute process, no ductal dilation and hepatitis panel negative. Continue to monitor hepatic panel. (2) Hyperbilirubinemia Current Visit: Yes Status: Acute Assessment and plan: As above. (3) Nausea & vomiting Current Visit: Yes Status: Acute Assessment and plan: Continue antiemetics. Qualifiers: Vomiting type: cyclical vomiting Vomiting Intractability: intractable Qualified Code(s): G43.A1 - Cyclical vomiting, intractable (4) Morbid obesity with BMI of 40.0-44.9, adult Current Visit: Yes Status: Chronic - Time Spent With Patient Total time spent is greater than 50% in coordination of care (as documented) at patient's floor/unit and/or counseling patient: GI History of Present Illness - Data of Consult Patient: new to practice Consult date: 10/08/16 Requesting Physician: Ignacio Sutton - Consult Narrative Reason for consult: Transaminitis, hyperbilirubinemia, epigastric pain History of present illness: Ms. Collado is a 51 year old female with PMHx of HTN obstructive sleep apnea, diverticulosis, morbid obesity, who presented to the ED with intractable midepigastric abdominal pain, nausea, and vomiting. She reported gas/bloating and took Gas-X which did not improve symptoms. She denies diarrhea, constipation , hematemesis, melena, or hematochezia. No specific food triggers identified, but eating anything worsened symptoms. She reported lower chest discomfort, but reported this as being part of her epigastric complaints. Family history is significant with father treated for an aortic aneurysm and her mother having received a CABG. CTA abdomen and pelvis showed no acute abnormality, but did show diverticulosis. On admission TB 1.8, DB 1.2, AST 489, and ALT 417. This AM TB 2, AST 535, and ALT 616. Procedures: None NSAIDs: None Anticoagulation: None Past Med Surg Social Fam HX - Past Medical History Medical history: arthritis, hypertension, other (Diverticulosis of the colon. Obstructive sleep apnea, nocturnal CPAP dependent.) Psychiatric history: anxiety, depression, other - Past Surgical History Surgical History: , cholecystectomy, other - Social History Smoking Status: Never smoker Smokeless Tobacco Status: No Alcohol use: rarely Drug use: none - Family History Mother Living Status: Still Living Hx Family Cardiac Disorders: Yes Father Living Status: Cause of : Aortic aneurysm Hx Family Cardiac Disorders: Yes - Gastrointestinal Gastrointestinal: Present: as per HPI - Constitutional Constitutional: as per HPI - EENT Eyes: as per HPI Ears: Present: as per HPI Nose, mouth and throat: Present: as per HPI - Cardiovascular Cardiovascular ROS: Present: as per HPI - Respiratory Respiratory IM: Present: as per HPI - Genitourinary Genitourinary: Absent: change in color, Urinary frequency - Neurological ROS Neurological GI: Present: as per HPI - Hematologic/Lymphatic Hematologic/Lymphatic pediatric: Present: as per HPI - Musculoskeletal Musculoskeletal ROS GI: Present: as per HPI - Integumentary Integumentary GI: Present: as per HPI - Psychiatric ROS Psychiatric GI: Present: as per HPI - Endocrine Endocrine IM: Present: as per HPI - Constitutional Vitals: Temp Pulse Resp BP Pulse Ox 98.1 F 70 16 155/99 97 10/08/16 12:00 10/08/16 12:00 10/08/16 12:00 10/08/16 12:00 10/08/16 12:00 General appearance: Present: cooperative, A&O X 3, no acute distress, answers questions appropriately - Head Head exam: Present: atraumatic, normocephalic - Eye Eye exam: Present: normal appearance, sclera anicteric - ENT ENT exam: Present: mucous membranes moist - Neck Neck exam general surgery: Present: normal inspection, trachea midline - Respiratory Respiratory exam: Present: CTAB. Absent: rales, rhonchi - Cardiovascular Cardiovascular exam: Present: RRR, +S1, +S2 - GI/Abdominal GI/Abdominal exam: Present: soft, tenderness (upper abdomen), no peritoneal signs. Absent: distended, firm, guarding Additional comments: obese - Rectal Rectal exam: Present: deferred - Extremities Exam Extremities exam: Present: warm - Neurological Exam Neurological exam: Present: no focal deficits - Psychiatric Psychiatric exam: Present: normal affect, normal mood - Skin Skin exam: Present: dry, intact, normal color, warm Results - Labs CBC & Chem 7: 10/08/16 05:31 10/08/16 05:31 Labs: Last Result Calcium 8.4 mg/dL (8.6-10.8) L 10/08/16 05:31 Troponin I 0.00 ng/mL (0-0.03) 10/08/16 05:31 C-Reactive Protein 5 mg/L (Less than 5) H 10/08/16 05:31 Triglycerides 50 mg/dL (< 150) 10/08/16 05:31 Urine Opiates Screen Negative ng/mL (Ievsmn=514) 10/08/16 04:30 Entire Visit Hgb 11.7 g/dL (11.5-15.4) D 10/08/16 05:31 Hct 36.2 % (35.3-44.9) 10/08/16 05:31 PT 12.0 Seconds (9.4-12.1) 10/07/16 23:08 Total Bilirubin 2.0 mg/dL (0.2-1.2) H 10/08/16 05:31 AST 535 Units/L (5-34) H 10/08/16 05:31 ALT 616 Units/L (0-55) H 10/08/16 05:31 Lipase 19 Units/L (8-78) 10/07/16 19:40 - ABG ABG results: PT/INR, D-dimer PT 12.0 Seconds (9.4-12.1) 10/07/16 23:08 - Impressions Impressions Abdomen MRI 10/08/16 10:18 IMPRESSION: 1. No acute upper abdominal abnormality to account for the patient's symptoms and elevated LFT. 2. Cholecystectomy. 3. No intra or extrahepatic biliary dilatation. No choledocholithiasis. D/ / 10/08/2016 12:16:57 Fiona Montero MD / Radha Hernandez Interpreting Provider: Fiona Montero MD Consult Discharge Plan - Plan Referrals: Crystal Leiva MD [Primary Care Provider] - <Tere Jimenez - Last Filed: 10/08/16 20:40> Date of Encounter: 10/08/16 Time of Encounter: 20:00 - Time Spent With Patient Total time spent is greater than 50% in coordination of care (as documented) at patient's floor/unit and/or counseling patient: GI History of Present Illness - Data of Consult Requesting Physician: Ignacio Sutton - Consult Narrative History of present illness: Ms. Collado is a 51 year old female - Constitutional Vitals: Temp Pulse Resp BP Pulse Ox 98.9 F 67 16 161/104 95 10/08/16 19:26 10/08/16 19:26 10/08/16 19:26 10/08/16 19:26 10/08/16 19:26 Results - Labs CBC & Chem 7: 10/08/16 05:31 10/08/16 05:31 Labs: Last Result Calcium 8.4 mg/dL (8.6-10.8) L 10/08/16 05:31 Troponin I 0.00 ng/mL (0-0.03) 10/08/16 17:00 C-Reactive Protein 5 mg/L (Less than 5) H 10/08/16 05:31 Triglycerides 50 mg/dL (< 150) 10/08/16 05:31 Urine Opiates Screen Negative ng/mL (Ktrhap=006) 10/08/16 04:30 Entire Visit Hgb 11.7 g/dL (11.5-15.4) D 10/08/16 05:31 Hct 36.2 % (35.3-44.9) 10/08/16 05:31 PT 12.0 Seconds (9.4-12.1) 10/07/16 23:08 Total Bilirubin 2.0 mg/dL (0.2-1.2) H 10/08/16 05:31 AST 535 Units/L (5-34) H 10/08/16 05:31 ALT 616 Units/L (0-55) H 10/08/16 05:31 Lipase 19 Units/L (8-78) 10/07/16 19:40 - ABG ABG results: PT/INR, D-dimer PT 12.0 Seconds (9.4-12.1) 10/07/16 23:08 - Impressions Impressions Abdomen MRI 10/08/16 10:18 IMPRESSION: 1. No acute upper abdominal abnormality to account for the patient's symptoms and elevated LFT. 2. Cholecystectomy. 3. No intra or extrahepatic biliary dilatation. No choledocholithiasis. D/ / 10/08/2016 12:16:57 Fiona Montero MD / Radha Hernandez Interpreting Provider: Fiona Montero MD - Attending Attestation I examined this patient and my medical decision-making was reviewed with the COMMUNICATIONS TOWER CLIMBER/PA/Advanced Practice Nurse/Resident Physician. I agree with the documented findings, disposition and treatment plan as described except to the extent set forth below.
--- NOTE | 2016-10-08 16:25 | Internal Med Progress Note ---
Date of Encounter: 10/08/16 Time of Encounter: 16:21 - Assessment and plan (1) Transaminitis Current Visit: Yes Status: Acute Assessment and plan: presented with abdominal pain for 3 days. h/o transaminitis , she reports that she has had elevated LFTS in the past which later improved. denies any pain at this time, MRi shows no ductal dilation or obstruction, s/p cholecystectomy. We will continue conservative management, GI is consulted. Possible no intervention at this time, we will monitor the LFTs, repeat in a.m. hepatitis panel is negative. will follow GI recommendation. (2) Morbid obesity with BMI of 40.0-44.9, adult Current Visit: Yes Status: Chronic (3) YANET (obstructive sleep apnea) Current Visit: Yes Status: Chronic Assessment and plan: reports that she has YANET but has not been able to get the CPAP machine. Also suffers from uncontrolled hypertension possible secondary to not using the CPAP. I will consult respiratory for CPAP at night. - Time Spent With Patient 25 - 35 minutes - Subjective Interval history: Patient seen at the bedside, denies any abdominal pain at this time. Denies any nausea or vomiting. Workup revealed hyperbilirubinemia and transaminitis. Status post MRI of the abdomen, no acute pathology at this time. Status post cholecystectomy. - Constitutional Vitals: Temp Pulse Resp BP Pulse Ox 98.3 F 65 16 144/97 96 10/08/16 14:40 10/08/16 14:40 10/08/16 14:40 10/08/16 14:40 10/08/16 14:40 General appearance: Present: cooperative, A&O X 3, morbidly obese, pleasant, answers questions appropriately Exam: - Head Head exam: Present: atraumatic, normal inspection, normocephalic - Eye Eye exam: Present: EOMI, PERRL, conjuntiva pink, sclera anicteric Pupils: Present: normal accommodation, PERRL - ENT ENT exam: Present: mucous membranes moist, normal external ear exam, normal oropharynx - Neck Neck exam general surgery: Present: full ROM, supple, trachea midline. Absent: lymphadenopathy, tenderness, nuchal rigidity - Respiratory Respiratory exam: Present: decreased breath sounds, CTAB. Absent: accessory muscle use, rales, rhonchi, wheezes - Cardiovascular Cardiovascular exam: Present: distant heart sounds, RRR, +S1, +S2. Absent: diastolic murmur, gallop, rubs, systolic murmur - GI/Abdominal GI/Abdominal exam: Present: diminished bowel sounds, hypoactive bowel sounds, soft, non tender, no peritoneal signs. Absent: mass, rebound - Extremities Exam Extremities exam: Present: full ROM, warm, radial pulses palpable and symetrical. Absent: calf tenderness, cyanotic, pedal edema - Neurological Exam Neurological exam: Present: alert, CN II-XII intact, oriented X3, no focal deficits. Absent: pronater drift, facial droop, speech deficit - Psychiatric Psychiatric exam: Present: normal affect, normal mood - Skin Skin exam: Present: dry, intact, warm. Absent: petechiae, rash, urticaria, vesicles Internal Medicine: Result - Labs CBC & Chem 7: 10/08/16 05:31 10/08/16 05:31 Labs: Short CBC 10/08/16 Range/Units 05:31 WBC 6.4 (4.3-11.1) K/mcL Hgb 11.7 D (11.5-15.4) g/dL Hct 36.2 (35.3-44.9) % Plt Count 194 (140-400) K/mcL Neutrophils # 4.0 (1.6-8.9) K/mcL BMP 10/08/16 05:31 Sodium 139 Potassium 4.1 Chloride 106 Carbon Dioxide 27 BUN 11 Creatinine 0.75 Glucose 107 H Calcium 8.4 L Cardiac Enzymes 10/07/16 10/08/16 Range/Units 23:08 05:31 Troponin I 0.02 0.00 (0-0.03) ng/mL Liver Function 10/08/16 Range/Units 05:31 Total Bilirubin 2.0 H (0.2-1.2) mg/dL AST 535 H (5-34) Units/L ALT 616 H (0-55) Units/L Alkaline Phosphatase 109 (38-126) Units/L Albumin 2.9 L (3.5-5.0) g/dL Urine 10/08/16 Range/Units 04:30 Urine Color Dark Yellow (Yellow) Urine Clarity Cloudy A (Clear) Urine pH 6.5 (5.0-8.0) pH Units Ur Specific [place] > 1.030 H (1.010-1.025) Urine Protein Negative (Neg-Trace) mg/dL Urine Glucose (UA) Normal (Normal) mg/dL - ABG Interpretation ABG results: PT/INR, D-dimer PT 12.0 Seconds (9.4-12.1) 10/07/16 23:08 - Impressions Impressions Abdomen MRI 10/08/16 10:18 IMPRESSION: 1. No acute upper abdominal abnormality to account for the patient's symptoms and elevated LFT. 2. Cholecystectomy. 3. No intra or extrahepatic biliary dilatation. No choledocholithiasis. D/ / 10/08/2016 12:16:57 Fiona Montero MD / Radha Hernandez Interpreting Provider: Fiona Montero MD Consult Discharge Plan - Plan Referrals: Crystal Leiva MD [Primary Care Provider] -
--- NOTE | 2016-10-08 17:02 | Electrocardiograph Report ---
[place] [id number] Test Date: 2016-10-07 Pat Name: Maxim Collado Department: [id number] Room: 3A35 Gender: F Account Administrator: : [id number] Requested By: Jer Wright Order Number: [id number] Reading MD: Jimmy Riddle Measurements Intervals [place] Rate: 63 P: 56 MA: 196 QRS: 1 QRSD: 96 T: 31 QT: 400 QTc: 407 Interpretive Statements SINUS RHYTHM MINIMAL VOLTAGE CRITERIA FOR LVH, CONSIDER NORMAL VARIANT NONSPECIFIC T-WAVE ABNORMALITY Electronically Signed On 10-08-2016 17:00:32 EST by Jimmy Riddle
[2016-10-08] MEDS: *HR* Heparin 5,000 UNIT/ML VIAL SQ SCH (17:58)
[2016-10-08] MEDS: Acetaminophen 325 MG TABLET PO PRN (22:01)
[2016-10-09] MEDS: Ringers Solution, Lactated 1,000 ML IVC SCH (03:00)
[2016-10-09] MEDS: *HR* Heparin 5,000 UNIT/ML VIAL SQ SCH (05:24)
[2016-10-09] MEDS: Acetaminophen 325 MG TABLET PO PRN (05:25)
--- NOTE | 2016-10-09 07:52 | Internal Med Progress Note ---
Date of Encounter: 10/09/16 - Constitutional Vitals: Temp Pulse Resp BP Pulse Ox 98.5 F 69 14 162/91 98 10/09/16 03:29 10/09/16 03:29 10/09/16 03:29 10/09/16 03:29 10/09/16 03:29 General appearance: Present: cooperative, A&O X 3, morbidly obese, pleasant, answers questions appropriately Internal Medicine: Result - Labs CBC & Chem 7: 10/08/16 05:31 10/08/16 05:31 Labs: Cardiac Enzymes 10/08/16 Range/Units 17:00 Troponin I 0.00 (0-0.03) ng/mL - ABG Interpretation ABG results: PT/INR, D-dimer PT 12.0 Seconds (9.4-12.1) 10/07/16 23:08 - Impressions Impressions Abdomen MRI 10/08/16 10:18 IMPRESSION: 1. No acute upper abdominal abnormality to account for the patient's symptoms and elevated LFT. 2. Cholecystectomy. 3. No intra or extrahepatic biliary dilatation. No choledocholithiasis. D/ / 10/08/2016 12:16:57 Fiona Montero MD / Radha Hernandez Interpreting Provider: Fiona Montero MD Consult Discharge Plan - Plan Referrals: Crystal Leiva MD [Primary Care Provider] -
[2016-10-09 08:33] LABS: Albumin/Globulin Ratio 0.9 (1.1-2.2); Bilirubin,Direct 0.3 mg/dL (0.0-0.5); Bilirubin,Indirect 0.3 mg/dL (0.0-1.2); Bilirubin,Total 0.6 mg/dL (0.2-1.2); Globulin 3.3 g/dL (2.4-3.5); Total Protein 6.3 g/dL (6.0-8.3)
--- NOTE | 2016-10-09 11:04 | Discharge Summary ---
Date of Encounter: 10/09/16 Time of Encounter: 10:50 - Discharge Diagnosis (1) Gilbert syndrome Status: Acute - Discharge Medications Home Medications: Escitalopram [Lexapro] 20 mg PO DAILY 10/07/16 [History] Furosemide [Lasix] 20 mg PO DAILY 10/07/16 [History] ClonazePAM [Klonopin] 0.5 mg PO HS PRN 10/08/16 [History] Lisinopril [Zestril] 10 mg PO DAILY 10/08/16 [History] Humphrey-3/Dha/Epa/Fish Oil [Fish Oil 1,000 mg Softgel] 1,000 mg PO DAILY 10/08/16 [History] Lisinopril [Zestril] 5 mg PO BID tablet 10/09/16 [Rx] Allergies/Adverse Reactions: Allergies codeine Allergy (Verified 10/07/16 19:37) See Comments Pt states throat swells (moderately) and that hives and itching are severe. Procedures/tests Complete & Pending: Procedures Performed prior 72 hours Category Date Time Status MR abdomen wo con [MR] Routine MRI 10/08/16 10:18 Completed Date of admission: 10/07/16 22:24 Primary care physician: Crystal Leiva - Patient Status Disposition: Home, Self-Care Condition: Good Overall status at discharge: patient is progressing back to baseline - Discharge Instructions Follow Up With: Crystal Leiva MD [Primary Care Provider] - Additional Instructions: Repeat LFT with PCP in 1 week. - Diet and Activity Activity: resume usual activities as tolerated Diet: advance to your usual diet Hospital course: Ms. Collado is a 51 year old female - Time Spent with Patient Total time spent providing and/or coordinating discharge services: - Constitutional Vitals: Temp Pulse Resp BP Pulse Ox 97.6 F 67 14 147/96 97 10/09/16 08:00 10/09/16 08:00 10/09/16 08:00 10/09/16 08:00 10/09/16 08:00 General appearance: Present: cooperative, A&O X 3, morbidly obese, pleasant, answers questions appropriately
[2016-10-09 13:41] VITALS: BP 138/86
== END 2016-10-09 12:30 | disposition home or self-care (01) ==
LOC: EMEROO 18:19 → 3ANU 18:19
PROVIDERS: ADMIT Internal Medicine; ATTEND Internal Medicine Endocrinology, Diabetes & Metabolism